=== PATIENT | male | born 1980 | race African-American/Black ===

== ENCOUNTER 2019-09-17 11:26 | Emergency (ER) | payer SELFPAY ==
[~2019-09-17] VITALS: Ht 180.3 cm; Wt 90.3 kg
--- NOTE | 2019-09-17 11:36 | NUR ---
ED Nurse Note: Pt came in from home due to bilateral eye itchiness, teary, pain x 3 days. Pt usually wears Rx glasses, today did NOT have glasses with him. Visual accuity 20/70 bilateral eyes. Pain 4/10 at this time. AOOx4, vital signs stable. Able to make needs known. NAD. Will cont to monitor.
[2019-09-17 11:50] VITALS: BP 131/70
[2019-09-17] MEDS ORDERED: Fluorescein Strips BOTH EYES ONE (12:00)
[2019-09-17] MEDS ORDERED: Tetracaine 0.5% Opth 4ml Soln BOTH EYES ONE (12:00)
[2019-09-17] MEDS ORDERED: OLOPATADINE HCL5 ML OP (12:12)
[2019-09-17] MEDS ORDERED: AKTOB1 DROP BOTH EYES (12:12)
[2019-09-17 12:18] VITALS: BP 131/70
--- NOTE | 2019-09-17 12:18 | NUR ---
ER DISCHARGE NOTE: Patient is cleared to be discharged per ERMD, pt is aox4, on room air, with stable vital signs. pt was given dc and prescription instructions, pt was able to verbalize understanding, pt id band removed. pt is able to ambulate with steady gait. pt took all belongings.
--- NOTE | 2019-09-17 12:55 | Emergency Room Report ---
History of Present Illness General Chief Complaint: Eye Problems Source: Patient Present Illness HPI Patient is 38-year-old male presents after increased bilateral eye discharge. Patient reports having onset of symptoms approximately 2 days prior to arrival. Denies any photophobia. Reports having some increased itchiness to both eyes. Denies any definite trauma. Denies visual changes. Allergies: Coded Allergies: No Known Allergies (Unverified , 09/17/19) Patient History Past Medical History: see triage record Reviewed Nursing Documentation: PMH: Agreed; PSxH: Agreed Nursing Documentation-PMH Past Medical History: No Stated History Review of Systems All Other Systems: negative except mentioned in HPI Physical Exam Vital Signs Date Time Temp Pulse Resp B/P (MAP) Pulse Ox O2 Delivery O2 Flow Rate FiO2 09/17/19 11:29 98.8 88 18 133/63 (86) 98 Room Air General Appearance: well appearing, no apparent distress, GCS 15 Head: normocephalic, atraumatic Eyes: bilateral eye PERRL, bilateral eye other - no fluorescein uptake bilaterally ENT: hearing grossly normal, normal voice Neck: full range of motion, supple Respiratory: no respiratory distress, speaking full sentences Cardiovascular #1: normal inspection Musculoskeletal: no calf tenderness Neurologic: normal gait Psychiatric: mood/affect normal Skin: no rash Medical Decision Making Diagnostic Impression: Primary Impression: Conjunctivitis ER Course Patient presented for bilateral eye redness and irritation. Differential diagnosis includes is not limited to conjunctivitis, foreign body, among others. Patient has a benign exam and does not appear to require any imaging or laboratory testing at this time. Patient did not show any evidence of fluorescein dye uptake. Patient was advised to recheck with ophthalmology in 1 to 2 days.. He was given prescription for ocular antihistamines as well as topical antibiotics. Patient does not appear to have any visual changes. He is advised to return if worse. Last Vital Signs Date Time Temp Pulse Resp B/P (MAP) Pulse Ox O2 Delivery O2 Flow Rate FiO2 09/17/19 12:18 98.8 74 20 131/70 98 Room Air Status: improved Disposition: HOME, SELF-CARE Condition: Stable Scripts Tobramycin Sulf (Tobramycin) 5 Ml Drops 1 DROP BOTH EYES Q4H, #5 ML Prov: Kye Roa MD 09/17/19 Olopatadine HCl (Olopatadine HCl) 5 Ml Drops 5 ML OP TWICE A DAY, #5 ML Prov: yKe Roa MD 09/17/19 Departure Forms: Return to Work Return to Work in (Days): 3 Patient Instructions: Bacterial Conjunctivitis Additional Instructions: Follow up with opthalmology for recheck in 1-2 days. Kye Roa MD Sep 17, 2019 12:55
== END 2019-09-17 12:18 | disposition home or self-care (01) ==
LOC: EMR 11:45
DX: H10.9 Unspecified conjunctivitis (principal)
CPT/HCPCS: 99282